=== PATIENT | female | born 1985 | race African-American/Black ===

== ENCOUNTER 2019-04-15 10:40 | Emergency (ER) | payer OTHER ==
[2019-04-15 10:46] VITALS: BP 117/71; PULSE 98; TEMP 98.9; BMI 29.1
[2019-04-15] MEDS ORDERED: SODIUM CHLORIDE FOR INHALATION 3 ML VIAL.NEB IH ONE (11:15)
--- NOTE | 2019-04-15 11:23 | PDOC ---
History of Present Illness - General Chief Complaint: Cold Symptoms Stated Complaint: DIFFICULTY BREATHING/FEVER Time Seen by Provider: 04/15/19 11:05 History Source: Patient Exam Limitations: No Limitations Past History - Past Medical History Allergies/Adverse Reactions: Allergies Allergy/AdvReac Type Severity Reaction Status Date / Time No Known Allergies Allergy Verified 04/15/19 10:42 Home Medications: Ambulatory Orders Albuterol 0.083% Nebulizer Chantel [Ventolin 0.083%] 1 neb NEB Q4H PRN #30 vial Albuterol Sulfate Inhaler - [Ventolin HFA Inhaler -] 1 - 2 inh PO Q4H #1 inhaler 04/15/19 Fluticasone Prop 0.05% Nasal [Flonase -] 1 - 2 spray NS DAILY #1 spray.pump Asthma: Yes COPD: No Diabetes: Yes (PRE) - Immunization History Immunization Up to Date: Yes - Suicide/Smoking/Psychosocial Hx Smoking History: Never smoked Hx Alcohol Use: No Drug/Substance Use Hx: No *Physical Exam - Vital Signs Last Vital Signs Temp Pulse Resp BP Pulse Ox 98.9 F 98 H 18 117/71 97 04/15/19 10:42 04/15/19 10:42 04/15/19 10:42 04/15/19 10:42 04/15/19 10:42 - Physical Exam General Appearance: No: Apparent Distress HEENT: positive: TMs Normal, Pharynx Normal, Nasal Congestion. negative: Rhinorrhea, Sinus Tenderness Respiratory/Chest: positive: Lungs Clear, Normal Breath Sounds. negative: Respiratory Distress, Wheezing Cardiovascular: positive: Regular Rhythm, Regular Rate, S1, S2. negative: Murmur Gastrointestinal/Abdominal: positive: Soft. negative: Tender Neurologic: positive: Alert, Normal Mood/Affect ED Treatment Course - RADIOLOGY Radiology Studies Ordered: Category Date Time Status CHEST PA & LAT [RAD] Stat Radiology 04/15/19 11:15 Ordered Medical Decision Making - Medical Decision Making 33 y/o F with hx of asthma presents with productive cough, rhinorrhea, congestion and chest pain with coughing x 3 days. Mentions she returned from [place] 2 weeks ago and was also sick with productive cough; sxs resolved after a few days and returned 3 days ago. Also c/o subjective fever. Took Alleve yesterday which helped. Denies throat pain, sneezing, sob, abd pain, n/v, rash. Likely URI; no wheezing noted Plan: Saline neb, CXR (given intermittent productive cough x 2 weeks) 04/15/19 11:18 CXR negative Patient feeling better on reassessment; also requesting refill of her asthma meds stable for dc 04/15/19 11:59 *DC/Admit/Observation/Transfer Diagnosis at time of Disposition: URI (upper respiratory infection) Qualifiers: URI type: unspecified viral URI Qualified Code(s): J06.9 - Acute upper respiratory infection, unspecified - Discharge Dispostion Disposition: HOME Condition at time of disposition: Stable Decision to Admit order: No - Prescriptions Prescriptions: Albuterol 0.083% Nebulizer Chantel [Ventolin 0.083%] 1 neb NEB Q4H PRN #30 vial PRN Reason: Shortness Of Breath Albuterol Sulfate Inhaler - [Ventolin HFA Inhaler -] 1 - 2 inh PO Q4H #1 inhaler Fluticasone Prop 0.05% Nasal [Flonase -] 1 - 2 spray NS DAILY #1 spray.pump - Referrals - Patient Instructions Printed Discharge Instructions: DI for Viral Upper Respiratory Infection -- Adult Additional Instructions: Thank you for choosing [facility]. It was a pleasure taking care of you. Your chest xray was normal Use saline spray/Nedi-pot to help with congestion You were also prescribed Flonase Follow-up with your doctor in 2 days Return to the Emergency Department if your symptoms worsen or persist or have other concerning symptoms. - Post Discharge Activity
== END 2019-04-15 12:10 | disposition home or self-care (01) ==
LOC: JERFT 10:40
PROC: 3E0F7GC Introduction of Other Therapeutic Substance into Respiratory Tract, Via Natural or Artificial Opening (ICD-10-PCS; principal; 2019-04-15)
DX: J06.9 Acute upper respiratory infection, unspecified (principal)
CPT/HCPCS: 71046-TC-FY; 99281-25